=== PATIENT | female | born 1960 | race African-American/Black ===

== ENCOUNTER 2017-07-16 06:38 | Emergency (ER) | payer MEDICAID ==
[~2017-07-16] VITALS: Ht 172.7 cm; Wt 99.8 kg
[~2017-07-16 06:38] MED LIST: LEVOTHYROXINE112 MCG ORAL; NORCO 5-325 TA1 EACH ORAL; PSEUDOEPHEDRINE30 MG PO; ROBITUSSIN COU118 M4 PO
[2017-07-16] MEDS ORDERED: SYNTHROID137 MCG ORAL (07:29)
--- NOTE | 2017-07-16 07:37 | Emergency Room Report ---
History of Present Illness General Chief Complaint: Sore Throat Source: Patient Present Illness HPI Patient presents with sore throat for 6 days. She's been taking NyQuil and Robitussin without help. She had difficulty swallowing water yesterday. She's had fevers without any chills. She feels slightly weak but not dizzy when she stands up. No NVD, dysuria, rashes. Slight headache. She had a hysterectomy in 1992. She does not smoke. 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 Allergies: Coded Allergies: CODEINE (Verified Allergy, Mild, Hives, 04/22/14) PENICILLINS (Verified Adverse Reaction, Mild, 04/22/14) NAUSEATED Patient History Past Medical History: see triage record Social History: Denies: smoking Social History Narrative works security [employer] Reviewed Nursing Documentation: PMH: Agreed, PSxH: Agreed Nursing Documentation-PMH Past Medical History: No History, Except For Review of Systems All Other Systems: negative except mentioned in HPI Physical Exam Vital Signs Date Time Temp Pulse Resp B/P (MAP) Pulse Ox O2 Delivery O2 Flow Rate FiO2 07/16/17 07:24 98.1 83 18 135/79 98 Room Air Sp02 EP Interpretation: reviewed, normal General Appearance: normal inspection, well appearing, no apparent distress Head: normocephalic, atraumatic Eyes: bilateral eye normal inspection, bilateral eye PERRL ENT: pharyngeal erythema, tonsillar exudate Neck: full range of motion, supple Respiratory: no respiratory distress, speaking full sentences Gastrointestinal: normal inspection Musculoskeletal: gait/station normal, normal range of motion Neurologic: alert, normal gait, grossly normal Psychiatric: mood/affect normal Skin: no rash Medical Decision Making Diagnostic Impression: Primary Impression: Sore throat ER Course Patient presents with throat pain for 6 days. Exam is consistent with pharyngitis. The time is a little against strep however antibiotics are indicated. In addition she was treated with viscous lidocaine here. Hemodynamically she is stable and does not appear toxic. There is no peritonsillar abscess at this time. The patient is stable for outpatient observation and treatment. Last Vital Signs Date Time Temp Pulse Resp B/P (MAP) Pulse Ox O2 Delivery O2 Flow Rate FiO2 07/16/17 07:58 67 16 137/85 95 Room Air 07/16/17 07:58 97.4 Status: improved Disposition: HOME, SELF-CARE Condition: Improved Scripts Lidocaine HCl 2% Viscous (Lidocaine HCl 2% Viscous) 100 Ml Solution 10 ML ORAL QID Y for throat pain, #60 ML mix with 10 ml water Prov: Marquise Siegel M.D. 07/16/17 Tramadol Hcl* (ULTRAM*) 50 Mg Tablet 50 MG ORAL Q6H Y for For Pain, #10 TAB 0 Refills Prov: Marquise Siegel M.D. 07/16/17 Azithromycin* (ZITHROMAX*) 250 Mg Tablet 250 MG ORAL DAILY, #4 TAB Prov: Marquise Siegel M.D. 07/16/17 Referrals: [facility],REFERRING (PCP) Marquise Siegel M.D. Jul 16, 2017 07:37
[2017-07-16] MEDS ORDERED: LIDOCAINE VISC100 ML ORAL (07:41)
[2017-07-16] MEDS ORDERED: ZITHROMAX250 MG ORAL (07:41)
[2017-07-16] MEDS ORDERED: TRAMADOL HCL50 MG ORAL (07:41)
[2017-07-16] MEDS ORDERED: Azithromycin 250mg tab ORAL ONE (07:45)
[2017-07-16] MEDS ORDERED: Lidocaine 2% Visc 15ml soln ORAL ONE (07:45)
[2017-07-16 07:58] VITALS: BP 137/85
== END 2017-07-16 07:58 | disposition home or self-care (01) ==
LOC: EMR 07:33
DX: J02.9 Acute pharyngitis, unspecified (principal); Z88.6 Allergy status to analgesic agent; Z88.0 Allergy status to penicillin
CPT/HCPCS: 99284; Q0144

== ENCOUNTER 2018-11-15 13:06 | Emergency (ER) | payer MEDICAID ==
[~2018-11-15] VITALS: Ht 172.7 cm; Wt 102.1 kg
[~2018-11-15 13:06] MED LIST changes: +LIDOCAINE VISC100 ML ORAL; +SYNTHROID137 MCG ORAL; +TRAMADOL HCL50 MG ORAL; +ZITHROMAX250 MG ORAL
[2018-11-15] MEDS ORDERED: IBUPROFEN600 MG ORAL (14:52)
--- NOTE | 2018-11-15 14:52 | Emergency Room Report ---
History of Present Illness General Chief Complaint: Pain Source: Patient Present Illness HPI PT. w. left thumb pain x 1.5 weeks. She states in the past similar symptoms on the right hand however this was years ago. Denies recent trauma or fall. Pt. denies hx of FOOSH. Pt . Denies warmth, erythema, open wounds, or possible FB. Pt. report pain with attempts left thumb abduction. pt. denies hx of arthritis, but reports frequent knee pain. Pt. states she has not taken any medications to help relieve her pain, she states she though with time symptoms would improve. Denies weakness, numbness tingling or loss of sensation or gross motor movements of the extremities, Denies CP, Palpitations, LOC, AMS, dizziness, Changes in Vision, weakness or a sudden severe headache. Allergies: Coded Allergies: CODEINE (Verified Allergy, Mild, Hives, 04/22/14) PENICILLINS (Verified Adverse Reaction, Mild, 04/22/14) NAUSEATED Patient History Past Medical History: see triage record Past Surgical History: none Pertinent Family History: none Now: No Reviewed Nursing Documentation: PMH: Agreed; PSxH: Agreed Nursing Documentation-PMH Past Medical History: No History, Except For Review of Systems All Other Systems: negative except mentioned in HPI Physical Exam Vital Signs Date Time Temp Pulse Resp B/P (MAP) Pulse Ox O2 Delivery O2 Flow Rate FiO2 11/15/18 13:18 98.6 78 18 125/79 98 Room Air Sp02 EP Interpretation: reviewed, normal General Appearance: no apparent distress, alert, GCS 15, non-toxic Head: normocephalic, atraumatic Eyes: bilateral eye normal inspection, bilateral eye PERRL ENT: hearing grossly normal, normal voice Neck: full range of motion Respiratory: lungs clear, normal breath sounds, speaking full sentences Cardiovascular #1: regular rate, rhythm, normal capillary refill Musculoskeletal: back normal, gait/station normal, normal range of motion, tender - TTP Thenar aspect of the left hand, mild swelling noted, no erythema, no warmth, no increased laxity. FROM of the joint, equal director digital marketing strength. Neurologic: alert, oriented x3, responsive, motor strength/tone normal, sensory intact, speech normal, grossly normal Psychiatric: judgement/insight normal Skin: normal color, no rash, warm/dry, well hydrated Medical Decision Making PA Attestation Dr. Simmons is my supervising Physician whom patient management has been discussed with. Diagnostic Impression: Primary Impression: Pain of left thumb ER Course PT. w. left thumb pain x 1.5 weeks. She states in the past similar symptoms on the right hand however this was years ago. Denies recent trauma or fall. Pt. denies hx of FOOSH. Pt . Denies warmth, erythema, open wounds, or possible FB. Pt. report pain with attempts left thumb abduction. pt. denies hx of arthritis, but reports frequent knee pain. Pt. states she has not taken any medications to help relieve her pain, she states she though with time symptoms would improve. Denies weakness, numbness tingling or loss of sensation or gross motor movements of the extremities, Denies CP, Palpitations, LOC, AMS, dizziness, Changes in Vision, weakness or a sudden severe headache. Ddx considered but are not limited to Fracture, dislocation, contusion, Sprain/ Strain/Spasm, avascular necrosis of the scaphoid, cellulitis, arthritis, gout, pseudo gout just to name a few. Vital signs: are WNL, pt. is afebrile H&PE are most consistent with musculoskeletal injury will perform imaging to r/ o fractures/dislocations. ORDERS: - X-ray Left hand 3 views - negative for fx, Dislocation, or significant soft tissue injury, per preliminary read in ED, and signed by TRINIDAD Soto , my supervising physician has reviewed, and agrees with my interpretation. ED INTERVENTIONS: -Thumb Spika Splint applied by qc lab technician. Pt. remains neurovascularly intact. DISCHARGE: At this time pt. is stable for d/c to home. Will provide printed patient care instructions, and any necessary prescriptions. Care plan and follow up instructions have been discussed with the patient prior to discharge. Other X-Ray Diagnostic Results Other X-Ray Diagnostic Results : X-Ray ordered: Left Hand # of Views/Limited Vs Complete: 3 View Indication: Pain EP Interpretation: Yes TRINIDAD Xray: Interpretation reviewed, by supervising MD, and agrees with findings. Interpretation: no dislocation, no soft tissue swelling, no fractures Impression: No acute disease Electronically Signed by: Vaishali Soto PA-C Last Vital Signs Date Time Temp Pulse Resp B/P (MAP) Pulse Ox O2 Delivery O2 Flow Rate FiO2 11/15/18 13:18 98.6 78 18 125/79 98 Room Air Disposition: HOME, SELF-CARE Condition: Stable Scripts Ibuprofen* (MOTRIN*) 600 Mg Tablet 600 MG ORAL THREE TIMES A DAY, #30 TAB 0 Refills Prov: Vaishali Soto 11/15/18 Referrals: [facility],REFERRING (PCP) Patient Instructions: Finger Sprain Additional Instructions: Take medications as directed. Follow up with a Primary Care Provider in 3-5 days, even if your symptoms have resolved. --Please review list of primary care clinics, if you do not already have a primary care provider Return sooner to ED if new symptoms occur, or current symptoms become worse. - Please note that this Emergency Department Report was dictated using [employer] support specialist technology software, occasionally this can lead to erroneous entry secondary to interpretation by the dictation equipment. Vaishali Soto Nov 15, 2018 14:52
[2018-11-15 14:54] VITALS: BP 127/83
[2018-11-15 14:56] VITALS: BP 127/83
--- NOTE | 2018-11-16 08:54 | Diagnostic Imaging Report ---
Indication: left hand pain. Findings: 3 views of the left hand were obtained. There is slight irregularity at the base of the distal phalange of the thumb on the medial side. This is questionable but doubtful for fracture. Correlate clinically. There is no malalignment. IMPRESSION: Questionable injury involving the distal phalange of the thumb. More likely, this is a small osteochondroma or enthesophyte. Correlate clinically.
== END 2018-11-15 14:56 | disposition home or self-care (01) ==
LOC: EMR 13:30
DX: M25.542 Pain in joints of left hand (principal); Z88.6 Allergy status to analgesic agent; Z88.0 Allergy status to penicillin
CPT/HCPCS: 29130; 99283

== ENCOUNTER 2019-07-08 08:34 | Emergency (ER) | payer MEDICAID ==
[~2019-07-08] VITALS: Ht 172.7 cm; Wt 99.8 kg
[~2019-07-08 08:34] MED LIST changes: +IBUPROFEN600 MG ORAL
--- NOTE | 2019-07-08 08:57 | Emergency Room Report ---
History of Present Illness General Chief Complaint: Skin Rash/Abscess Source: Patient, Medical Record Present Illness HPI Patient presents with swelling and discomfort to the left hand reports that on she feels that she was Bit by an insect there was some mild itching at that time however over the past 1 to 2 days has noticed increased swelling And continued itching denies any fevers or chills denies any chest pain denies any vomiting denies any abdominal pain Allergies: Coded Allergies: CODEINE (Verified Allergy, Mild, Hives, 04/22/14) PENICILLINS (Verified Adverse Reaction, Mild, 04/22/14) NAUSEATED Patient History Past Medical History: see triage record Reviewed Nursing Documentation: PMH: Agreed; PSxH: Agreed Nursing Documentation-PMH Past Medical History: No History, Except For Review of Systems All Other Systems: negative except mentioned in HPI Physical Exam Vital Signs Date Time Temp Pulse Resp B/P (MAP) Pulse Ox O2 Delivery O2 Flow Rate FiO2 07/08/19 08:37 98.1 69 18 129/82 (98) 96 Room Air Sp02 EP Interpretation: reviewed, normal General Appearance: well appearing, no apparent distress Head: normocephalic, atraumatic Eyes: bilateral eye PERRL, bilateral eye EOMI ENT: normal pharynx Neck: supple Respiratory: lungs clear Cardiovascular #1: regular rate, rhythm Gastrointestinal: non tender, soft Musculoskeletal: normal inspection - Full range of motion Neurologic: alert, oriented x3 Skin: other - Area of insect bite left proximal ring finger with a small scab, mild swelling and mild erythema at the site, no obvious compartment syndrome sensory intact Lymphatic: no adenopathy Medical Decision Making Diagnostic Impression: Primary Impression: Cellulitis Additional Impression: Insect bite ER Course Given the history exam and findings multiple differentials including but not limited to compartment syndrome, abscess, cellulitis all considered there appears to be an area of local reaction Given the mild swelling and some erythema early cellulitis also entertained patient provided with initial antibiotic Consideration made for penicillin allergy and will have initial conservative outpatient trial Please note that at time of disposition patient also requested evaluation of her left heel reports that over the past 3 months she has had continued discomfort Evaluation of that area does not reveal any fluctuance or erythema She has some discomfort at the mid base of the left foot Raising question of Ligamental/band type irritation and is stable for close follow-up Last Vital Signs Date Time Temp Pulse Resp B/P (MAP) Pulse Ox O2 Delivery O2 Flow Rate FiO2 07/08/19 08:37 98.1 69 18 129/82 (98) 96 Room Air Status: improved Disposition: HOME, SELF-CARE Condition: Improved Scripts Methylprednisolone (Methylprednisolone*) 4MG Dspk 4 MG ORAL DIRECTED for 6 Days, #21 EA 0 Refills Day 1: Two tablets before breakfast, one after lunch, one after dinner, and two at bedtime. If started late in the day, take all six tablets at once or divide into two or three doses, unless otherwise directed by prescriber. Day 2: One tablet before breakfast, one after lunch, one after dinner, and two at bedtime Day 3: One tablet before breakfast, one after lunch, one after dinner, and one at bedtime Day 4: One tablet before breakfast, one after lunch, and one at bedtime Day 5: One tablet before breakfast and one at bedtime Day 6: One tablet before breakfast Prov: Lloyd Simmons DO 07/08/19 Diphenhydramine Hcl* (BENADRYL*) 25 Mg Capsule 25 MG ORAL Q8HR PRN for Itching, #21 CAP Prov: Lloyd Simmons DO 07/08/19 Clindamycin Hcl (CLINDAMYCIN HCL) 300 Mg Capsule 300 MG ORAL THREE TIMES A DAY, #21 CAP Prov: Lloyd Simmons DO 07/08/19 Referrals: [facility],REFERRING (PCP) Additional Instructions: Patient is provided with the discharge instructions notified to follow up with primary doctor in the next 2-3 days otherwise return to the er with any worsening symptoms. Please note that this report is being documented using orderTalk technology. This can lead to erroneous entry secondary to incorrect interpretation by the dictating instrument. Lloyd Simmons DO Jul 08, 2019 08:57
[2019-07-08] MEDS ORDERED: MEDROL DOSEPAK4 MG ORAL (08:58)
[2019-07-08] MEDS ORDERED: BENADRYL25 MG ORAL (08:58)
[2019-07-08] MEDS ORDERED: CLINDAMYCIN HC300 MG ORAL (08:58)
[2019-07-08] MEDS ORDERED: Clindamycin 150mg cap ORAL ONE (09:00)
[2019-07-08 09:03] VITALS: BP 129/82
--- NOTE | 2019-07-08 09:07 | NUR ---
ED Nurse Note:pt. came with insect bite on left hand ,looks edemous, given PO meds
[2019-07-08 09:50] VITALS: BP 129/82
--- NOTE | 2019-07-08 09:50 | NUR ---
ER DISCHARGE NOTE: Patient is cleared to be discharged per ERMD, pt is aox4, on room air, with stable vital signs. pt was given dc and prescription instructions, pt was able to verbalize understanding, pt is able to ambulate with steady gait. pt took all belongings.
== END 2019-07-08 10:08 | disposition home or self-care (01) ==
LOC: EMR 08:42
DX: S60.465A Insect bite (nonvenomous) of left ring finger, initial encounter (principal); L03.012 Cellulitis of left finger; Z88.6 Allergy status to analgesic agent; Z88.0 Allergy status to penicillin; W57.XXXA Bitten or stung by nonvenomous insect and other nonvenomous arthropods, initial encounter; Y92.9 Unspecified place or not applicable
CPT/HCPCS: 99282